=== PATIENT | female | born 1950 | race Caucasian/White ===

== ENCOUNTER 2016-12-24 06:34 | Observation (INO) | payer OTHER ==
[~2016-12-24] VITALS: Ht 167.6 cm; Wt 118.9 kg
[~2016-12-24 06:34] MED LIST: AMIT25TA9 PO; CALC1CHW7 CHEW; FLUT50SP EACH NARE; FLUTI44I INH; LEVO137T2 PO; MONT10TA2 PO; MULT1TAB84 PO; TELM20 PO; TETA1INJ4 IM; VITA100021 SL
[2016-12-24] MEDS ORDERED: METOPROLOL TARTRATE 25 MG TAB PO PRN (07:15)
[2016-12-24] MEDS ORDERED: LACTATED RINGER'S 1000 ML IV SCH (07:15)
[2016-12-24] MEDS: SODIUM CHLORID 0.9% 500 ML IV SCH ×2 (07:15→23:55)
[2016-12-24] MEDS ORDERED: INSULIN HUMAN REGULAR 1,000 UNITS/10 ML VIAL SQ PRN (07:15)
[2016-12-24] MEDS ORDERED: BACL10TA PO (07:31)
[2016-12-24] MEDS ORDERED: TRAM50TA PO (07:31)
[2016-12-24 07:35] VITALS: BP 146/81; PULSE 69; RESP 20; TEMP 98; O2SAT 96
[2016-12-24] MEDS: ceFAZolin 1,000 MG/NS 100 ML IV SCH ×4 (07:42→18:26)
[2016-12-24] MEDS ORDERED: LIDOCAINE 1%/EPINEPHrine 1:100,000 SOLN 30 ML VIAL ONE (08:15)
[2016-12-24] MEDS ORDERED: GELFOAM SIZE 100 ONE (08:16)
[2016-12-24] MEDS ORDERED: THROMBIN (TOPICAL) 5,000 UNIT VIAL ONE (08:16)
[2016-12-24] MEDS ORDERED: GENTAMICIN SULFATE 80 MG/2 ML VIAL ONE (08:16)
[2016-12-24] MEDS ORDERED: ACETAMINOPHEN 1000 MG/100 ML VIAL IV ONE (08:37)
[2016-12-24] MEDS ORDERED: MIDAZOLAM HCL 2 MG/2 ML VIAL ONE (08:37)
[2016-12-24] MEDS ORDERED: FAMOTIDINE 20 MG/2 ML VIAL ONE (08:37)
[2016-12-24] MEDS ORDERED: DEXAMETHASONE SOD PHOS 4 MG/ML VIAL ONE (08:37)
[2016-12-24] MEDS ORDERED: KETAMINE HCL 500 MG/5 ML VIAL ONE (08:37)
--- NOTE | 2016-12-24 09:27 | EKG ---
Date Performed: 12/24/2016 Time Performed: 06:58:26 PTAGE: 66 years EKG: Sinus rhythm NORMAL ECG PREVIOUS TRACING : 10/25/1998 11.56 Compared to prior tracing no significant change DOCTOR: Acosta Nance Interpretating Date/Time 12/24/2016 09:25:02
[2016-12-24] MEDS ORDERED: ceFAZolin INJ 1,000 MG VIAL IV ONE (11:43)
[2016-12-24] MEDS ORDERED: ONDANSETRON HCL 4 MG/2 ML VIAL IV PUSH ONE (14:43)
[2016-12-24] MEDS ORDERED: LACTATED RINGER'S 1000 ML INJ 1,000 ML IV ONE (14:43)
[2016-12-24] MEDS ORDERED: PHENYLEPH/NS 1000 MCG/10 ML SYR IV ONE (14:43)
[2016-12-24] MEDS ORDERED: PROPOFOL 200 MG/20 ML AMP IV ONE (14:43)
[2016-12-24] MEDS ORDERED: SODIUM CHLOR 0.9% 250 ML INJ 500 ML IV ONE (14:44)
[2016-12-24] MEDS ORDERED: MAGNESIUM SULFATE 1 GM/2 ML VIAL IV ONE (14:46)
--- NOTE | 2016-12-24 14:52 | RADRPT ---
EXAM DATE/TIME: 12/24/2016 14:30 [facility] COMPARISON: FLUOROSCOPY PORTABLE UP TO 1HR, December 24, 2016, 0:00. INDICATIONS : Cervical spine C5-7 fusion. OR. MEDICAL HISTORY : None. SURGICAL HISTORY : None. ENCOUNTER: Initial ACUITY: 1 day PAIN SCORE: Non-responsive. LOCATION: Cervical spine C5-7 FINDINGS: There is anterior fusion hardware from C5 down to C7. Hardware is in excellent position. Alignment is good. CONCLUSION: 1. Excellent alignment of the cervical spine post fusion. Colton Mckeon MD on December 24, 2016 at 14:50 Board Certified Radiologist. This report was verified electronically.
[2016-12-24] MEDS ORDERED: *ONDANSETRON 4 MG VIAL PERIprocedural Use ONLY ONE (14:54)
[2016-12-24] MEDS ORDERED: fentaNYL CITRATE 250 MCG/5 ML AMP ONE (14:58)
[2016-12-24] MEDS ORDERED: DO NOT ADM ANY ANTICOAGULANT DRUGS XX PRN (15:30)
[2016-12-24] MEDS ORDERED: *morphine SULFATE 8 MG/ML PERIprocedure ONLY ONE ×3 (16:08→18:47)
[2016-12-24] MEDS ORDERED: ONDANSETRON HCL 4 MG/2 ML VIAL IV PRN (17:30)
[2016-12-24] MEDS ORDERED: SODIUM CHLORIDE 0.9% FLUSH 5 ML FLUSH IVF PRN (17:30)
[2016-12-24] MEDS ORDERED: PROMETHAZINE INJ 25 MG/ML VIAL IM PRN (17:30)
[2016-12-24] MEDS ORDERED: METHOCARBAMOL 500 MG TAB PO PRN (17:30)
[2016-12-24] MEDS ORDERED: traMADol HCL 50 MG TAB PO PRN (17:30)
[2016-12-24] MEDS ORDERED: NALOXONE HCL 0.4 MG/ML AMP IV PRN (17:30)
[2016-12-24] MEDS ORDERED: MORPHINE SULFATE 4 MG/ML INJ IV PRN (17:30)
[2016-12-24] MEDS ORDERED: MULTIVITAMINS/MINERALS THERAPEUTIC TAB PO SCH (18:00)
[2016-12-24] MEDS: D5-1/2 NS + KCL 20 MEQ INJ 1,000 ML IV SCH (18:20)
[2016-12-24] MEDS ORDERED: *HYDROmorphone PF 1 MG VIAL PERIprocedural Use ONLY ONE (20:19)
[2016-12-24] MEDS ORDERED: SODIUM CHLORIDE 0.9% FLUSH 5 ML FLUSH IVF SCH (21:00)
[2016-12-24] MEDS ORDERED: AMITRIPTYLINE HCL 25 MG TAB PO SCH (21:00)
[2016-12-24 21:16] VITALS: BP 131/61; PULSE 67; RESP 18; TEMP 97.1; O2SAT 96
[2016-12-24] MEDS: traMADol HCL 50 MG TAB PO PRN (21:58)
[2016-12-24] MEDS: DOCUSATE SODIUM 100 MG CAP PO SCH (21:58)
[2016-12-24] MEDS: BACLOFEN 10 MG TAB PO PRN (21:59)
[2016-12-25 00:33] VITALS: BP 115/56; PULSE 66; RESP 20; TEMP 97.3; O2SAT 96
[2016-12-25] MEDS: D5-1/2 NS + KCL 20 MEQ INJ 1,000 ML IV SCH (03:33)
[2016-12-25 04:26] VITALS: BP 107/55; PULSE 65; RESP 20; TEMP 97.3; O2SAT 96
[2016-12-25] MEDS ORDERED: LEVOTHYROXINE SODIUM 112 MCG TAB PO SCH (06:00)
[2016-12-25] MEDS ORDERED: LEVOTHYROXINE SODIUM 25 MCG TAB PO SCH (06:00)
[2016-12-25] MEDS: traMADol HCL 50 MG TAB PO PRN (06:21)
[2016-12-25] MEDS: BACLOFEN 10 MG TAB PO PRN (06:24)
[2016-12-25 08:23] LABS: AUTOMATED NEUTROPHIL # 8.2 TH/MM3 (1.8-7.7); BASOPHIL % 0.3 % (0.0-2.0); EOSINOPHIL # 0.1 TH/MM3 (0-0.4); EOSINOPHIL % 0.6 % (0.0-4.0); HEMATOCRIT 34.3 % (35.0-46.0); HEMO FLAGS DIFF FINAL; LYMPH % 21.7 % (9.0-44.0); LYMPHOCYTE # 2.7 TH/MM3 (1.0-4.8); MEAN CELL VOLUME 93.2 FL (80.0-100.0); MEAN CORPUSCULAR HEMOGLOBIN 30.4 PG (27.0-34.0); MEAN CORPUSCULAR HGB CONC 32.6 % (32.0-36.0); MONO % 11.2 % (0.0-8.0); NEUT % 66.2 % (16.0-70.0); PLATELET COUNT 254 TH/MM3 (150-450); RED BLOOD COUNT 3.68 MIL/MM3 (4.00-5.30); RED CELL DISTRIBUTION WIDTH 14.2 % (11.6-17.2); WHITE BLOOD COUNT 12.3 TH/MM3 (4.0-11.0)
[2016-12-25 08:39] VITALS: BP 127/60; PULSE 70; RESP 20; TEMP 96.8; O2SAT 96
--- NOTE | 2016-12-25 08:41 | HHI.NSPN ---
History Chief Complaint: left shoulder discomfort Interval History 12/24/16: C5 6 and C6 7 ACDF for severe stenosis System Review Comments Has a history of left rotator cuff-impingement syndrome. A little more uncomfortable in usual postop, but improving with range of motion. No hoarseness of voice or difficulty swallowing Exam Results Vital Signs Date Time Temp Pulse Resp B/P Pulse Ox O2 Delivery O2 Flow Rate FiO2 12/25/16 04:26 97.3 65 20 107/55 96 12/24/16 20:00 Nasal Cannula 2 Intake and Output 12/24/16 12/24/16 12/25/16 08:00 16:00 00:00 Intake Total 200 ml 560 ml Output Total 470 ml 560 ml Balance -270 ml 0 ml Physical Examination Respirations clear Heart rate regular Dressing dry and intact Mild drain output No hoarseness of voice Sensation intact by touch all extremities Strength normal major flexion and extension groups throughout the upper and lower extremities. Motor intact hand intrinsics Gait is steady without assistance Medical Decision Making Impression and Plan Impression: 1. Doing very well following C5 6, C6 7 ACDF for severe stenosis. Plan: Discussed with patient as well as physical therapy. geovanna Allen, IV. Plan discharge home today. Patient advised to Keep dressing dry for 7 days postoperative. Then removed outer Primapore dressing and may get Steri-Strips wet in the shower and let them fall off on their own Diet, signs and symptoms to watch for, activity precautions and exercises all fully explained. She will notify our office if any significant changes occur. Follow-up appointment approximately 2 weeks. Elia Veliz MD Dec 25, 2016 08:41
[2016-12-25 08:46] LABS: BICARBONATE 28.6 MEQ/L (21.0-32.0)
[2016-12-25] MEDS ORDERED: HYDR-3516 PO (08:54)
--- NOTE | 2016-12-25 08:55 | HHI.DCPOC ---
Discharge Care Plan Diagnosis: (1) Cervical spinal stenosis Your Health Problems Are: Difficulty with ADL Incision/Drains Difficulty to Swallow Goals to Promote Your Health * To prevent worsening of your condition and complications * To maintain your health at the optimal level Directions to Meet Your Goals Take your medications as prescribed Follow your dietary instruction Follow activity as directed Keep your appointments as scheduled Take your immunizations and boosters as scheduled If your symptoms worsen call your PCP, if no PCP go to Urgent Care Center or Emergency Room Smoking is Dangerous to Your Health. Avoid second hand smoke Call the 24-hour hour crisis hotline for domestic abuse at Elia Veliz MD Dec 25, 2016 08:55
--- NOTE | 2016-12-25 08:57 | HHI.DS ---
Discharge Summary Admission Date Dec 24, 2016 at 17:59 Discharge Date: Dec 25, 2016 Admitting Diagnosis Cervical stenosis Myelopathy (1) Cervical spinal stenosis Diagnosis: Principal ICD Code: M48.02 Procedures 12/24/16: C5 6 and C6 7 ACDF PE at Discharge Respirations clear Heart rate regular Dressing dry and intact Mild drain output No hoarseness of voice Sensation intact by touch all extremities Strength normal major flexion and extension groups throughout the upper and lower extremities. Motor intact hand intrinsics Gait is steady without assistance Hospital Course Patient underwent above-noted surgical procedure without complication. Postoperative course uneventful. Tolerating diet and ambulating well without new symptoms or focal deficit postoperative. Pt Condition on Discharge: Good Discharge Disposition: Discharge Home Discharge Instructions DIET: Follow Instructions for: Soft Diet ACTIVITIES You can perform: Weight Bearing As Kim Activities to Avoid: Lifting/Bending, Strenuous Activity ADDITIONAL Activity Instructio: Cervical collar when out of bed and active New Medications: Hydrocodone-Acetaminophen (Hydrocodone-Acetaminophen) 5-325 mg Tab 1 TAB PO Q6H PRN PAIN #30 Ref 0 TAB Continued Medications: Amitriptyline (Amitriptyline) 25 Mg Tab 25 MG PO HS Control Depression #60 Ref 1 TAB Baclofen (Baclofen) 10 Mg Tab 10 MG PO Q8HR PRN MUSCLE SPASM Ref 0 TAB Calcium Carbonate-Cholecalciferol (Calcium Chews) 600-400 Mg-Unit Chew 1 TAB CHEW DAILY TAB Cyanocobalamin (Vitamin B-12) 1,000 Mcg Subl Unknown Dose SL DAILY Nutritional Supplement Ref 0 TAB.SL Fluticasone 10.6 GM Inh (Flovent Hfa 10.6 GM Inh) 44 Mcg/Act Inh 1 PUFF INH DAILY Use daily at the same time. Asthma Management #1 Ref 0 INHALER Fluticasone Nasal [place] (Fluticasone Nasal [place]) 50 Mcg/Act Naspr 50 MCG EACH NARE DAILY 50 mcg/spray Allergy Management #1 Ref 0 BOTTLE Levothyroxine (Levothyroxine) 137 Mcg Tab 137 MCG PO DAILY Thyroid #93 Ref 1 TAB Montelukast (Singulair) 10 Mg Tab 10 MG PO DAILY #90 Ref 0 TAB Multiple Vitamins W/ Minerals (Multivitamin Adults) 1 Tab 1 TAB PO TID BARIATRIC WITH IRON Nutritional Supplement Ref 0 TAB Telmisartan (Micardis) 20 Mg Tab 10 MG PO DAILY 1/2 tab daily Blood Pressure Management #45 Ref 3 TAB Tramadol (Tramadol) 50 Mg Tab 50 MG PO Q4H PRN PAIN Ref 0 TAB Elia Veliz MD Dec 25, 2016 08:57
[2016-12-25] MEDS ORDERED: NON-FORMULARY DRUG (Levothyroxine 137 MCG) PO SCH (09:00)
[2016-12-25] MEDS ORDERED: MONTELUKAST SODIUM 10 MG TAB PO SCH (09:00)
[2016-12-25] MEDS ORDERED: FLUTICASONE PROPIONATE 44 MCG/ACT 10.6 GM INHALER INH SCH (09:00)
[2016-12-25] MEDS ORDERED: LOSARTAN 25 MG TAB PO SCH (09:00)
[2016-12-25] MEDS ORDERED: CALCIUM CARBONATE CHOLECALCIFEROL CHEW SCH (09:00)
[2016-12-25] MEDS ORDERED: PANTOPRAZOLE SOD 40 MG DELAYED RELEASE TAB PO SCH (09:00)
[2016-12-25] MEDS ORDERED: CALCIUM/VITAMIN D 250 MG/125 U TAB PO SCH (09:00)
[2016-12-25] MEDS ORDERED: FLUTICASONE PROPIONATE 50 MCG/ACT 16 GM NASAL SPRAY EACH NARE SCH (09:00)
[2016-12-25] MEDS: DOCUSATE SODIUM 100 MG CAP PO SCH (09:51)
--- NOTE | 2017-01-06 11:54 | PD.OP ---
Operative Report Date of Surgery: Dec 24, 2016 Preoperative Diagnosis: (1) Cervical spinal stenosis (2) Cervical disc disease with myelopathy Cervical spondylosis and degenerative disc disease Cervical stenosis severe at C5 6 and C67 levels cervical myelopathy Postoperative Diagnosis: (1) Cervical spinal stenosis (2) Cervical disc disease with myelopathy Cervical spondylosis and degenerative disc disease Cervical stenosis severe at C5 6 and C67 levels cervical myelopathy Procedure: C5 6 and C6 7 anterior cervical discectomy, bilateral foraminotomies, resection posterior aspect as complex-microtechnique C5 6 and C6 7 anterior cervical interbody fusion, composite allograft bone C5-C7 anterior cervical instrumentation Anesthesia: General ETT Surgeon: Elia Veliz Hull Grinder(s): Tequila Vargas Operation and Findings: Findings: Severe C5 6 and C6 7 posterior osteophytic disc complex. Severe calcification of the annulus and posterior longitudinal ligament at the C5 6 level Procedure in detail: The patient was brought into the operating room and positioned in supine position on the 3080 table with the head and neck in neutral position. Crane catheter was placed. Lines were established by Anesthesia. Gen. endotracheal anesthesia was induced without difficulty, taking care not to significantly flex or extend the patient's neck during intubation and positioning. Leads for intraoperative neuro monitoring were placed and a baseline study obtained. All extremities were appropriately padded. The neck and upper chest were shaved with clippers and sterilely prepped and draped. Appropriate time-out procedure was performed with all personnel present and in agreement 1% Xylocaine with epinephrine was used for local infiltration over the incision site which was made transversely at the left C6 level and carried sharply down through the platysma muscle. The exposure was continued medial to the sternocleidomastoid muscle and carotid artery, and lateral to the trachea and esophagus. The prevertebral fascia was elevated away from the anterior longitudinal ligament with a Kitner sponge. The longus coli muscle on each side was elevated with the Ruano elevator. The self-retaining retractor was placed with the blades beneath the longus coli muscle on each side. The appropriate levels were confirmed with intraoperative C-arm and preoperative imaging studies. The microscope was brought into place and used for the remainder of the procedure including the closure. The 14 mm distraction pins were used as needed for gentle distraction during the procedure. The procedure was performed sequentially at the C5 6 followed by the C6 7 levels. At each level the anterior osteophyte was resected with the [place] rongeur. The disc and annulus was incised with a 15 blade knife and discectomy performed with pituitary biopsy forceps and straight and angled curettes. The TPS drill with the 5 mm barrel bur was used to decorticate the endplates and removed the majority of the osteophyte along the anterior spinal canal as well as the right and left uncovertebral joint. The posterior vertebral margins of at least 5 mm above and below the interspace at each level were resected with the TPS drill with a 5 mm barrel bur followed by the 4 mm nelson bur. The thin ligament dissector was used to free up the posterior annulus and ligament from the vertebral body margin. The remainder of the resection of the posterior annulus and ligament as well as the posterior osteophyte and bilateral uncovertebral joint was performed with the 2 and 3 mm thin footplate [place] rongeurs. At the C5 6 level, there was severe calcification of the annulus and posterior longitudinal ligament. This tissue was very adherent to the thecal sac . Extreme care was taken to lift this calcified tissue away from the anterior aspect of the spinal cord. No spinal fluid leakage was encountered. At the C6 7 level, the posterior osseous disc complex was also very extensive, but there was no adhesion noted and no calcification of the posterior longitudinal ligament. Significant posterior osteophyte was encountered and extensively removed. The posterior vertebral bodies were undercut with the [place] rongeur and the TPS drill with the 4 mm nelson bur as needed to fully decompress the anterior spinal canal. The appropriate size V G2 bone graft was then placed at each level with a good fit of the graft. The blunt nerve hook was used to probe beneath the bone graft to ensure that there was no impingement on the thecal sac or exiting nerve roots. The appropriate size Precision anterior cervical plate was then chosen and the bone screws were placed with the 14 mm fixed screws at the caudal most level and the 14 mm variable screws at the cephalad level of the decompression. The screws were firmly secured and the locking cams engaged. The entire construct was checked with intraoperative C-arm and felt to be satisfactory. The 10 Tamazight drain was brought out through a small incision in the left lower neck and secured to the skin with nylon suture and attached to sterile suction. The closure was performed with 3-0 Vicryl running for the platysma and interrupted for the subcutaneous closure, with 4-0 Vicryl running for the subcuticular closure. A dressing of sterile Mastisol, Steri-Strips, and Primapore dressing was placed. The patient was placed into a cervical collar, and taken to recovery room in stable condition. All counts were correct at the end of the case. Estimated blood loss was 150 cc No specimen was sent to pathology. Intraoperative neuro monitoring during the procedure was stable. Elia Veliz MD Jan 06, 2017 11:54
[2017-02-03] MEDS ORDERED: [UNRECOGNIZED DRUG - CODE] I-ARTICULR (14:29)
[2017-02-10] MEDS ORDERED: AMIT25TA9 PO (09:46)
[2017-02-10] MEDS ORDERED: TELM20 PO (09:46)
[2017-02-10] MEDS ORDERED: FLUT50SP EACH NARE (09:46)
[2017-02-10] MEDS ORDERED: MONT10TA2 PO (09:46)
[2017-02-10] MEDS ORDERED: TRAM50TA PO (09:47)
[2017-02-10] MEDS ORDERED: BACL10TA PO (09:47)
[2017-02-10] MEDS ORDERED: FLUTI44I INH (09:47)
[2017-02-26] MEDS ORDERED: SCOP1PAT2 TOPICAL (11:02)
[2017-04-30] MEDS ORDERED: HEMOCAP PO (13:46)
[2017-04-30] MEDS ORDERED: CALTCHW5 PO (13:46)
== END 2016-12-25 11:09 | disposition home or self-care (01) ==
LOC: HSDC 06:34 → EDSTATUS 08:30 → HSDI 17:59 → N05B 21:01
PROVIDERS: ADMIT Neurological Surgery; ATTEND Neurological Surgery
DX: M48.02 Spinal stenosis, cervical region (principal); M50.022 Cervical disc disorder at C5-C6 level with myelopathy; M47.12 Other spondylosis with myelopathy, cervical region; Z01.810 Encounter for preprocedural cardiovascular examination
CPT/HCPCS: 00600; 20931; 22551; 22552; 22853; 72040; 76000; 80048; 85025; 93005; 97162; C1713; G0378; G8987; G8988; J0131; J0690; J1100; J1170; J1580; J2250; J2270; J2370; J2405; J3010; J3475; J3480; J7050; J7120; L0150; L0172